=== PATIENT | female | born 1960 | race Caucasian/White ===

== ENCOUNTER 2018-06-01 09:14 | Outpatient (CLI) | payer OTHER | END 2018-06-01 17:00 | disposition home or self-care (01) | LOC: MAMO-SONO 09:14 | DX: Z12.31 Encounter for screening mammogram for malignant neoplasm of breast (principal); J45.998 Other asthma ==

== ENCOUNTER 2021-08-24 09:09 | Outpatient (CLI) | payer OTHER | END 2021-08-24 09:26 | disposition home or self-care (01) | LOC: MAMO-SONO 09:09 | PROVIDERS: ATTEND General Practice | DX: Z12.31 Encounter for screening mammogram for malignant neoplasm of breast (principal); N64.4 Mastodynia ==

== ENCOUNTER 2023-02-24 10:22 | Outpatient (CLI) | payer OTHER | END 2023-02-24 10:34 | disposition home or self-care (01) | LOC: MAMO-SONO 10:22 | DX: Z12.39 Encounter for other screening for malignant neoplasm of breast (principal); Z12.31 Encounter for screening mammogram for malignant neoplasm of breast; R10.2 Pelvic and perineal pain ==

== ENCOUNTER 2023-03-02 15:11 | Outpatient (CLI) | payer OTHER | END 2023-03-02 15:22 | disposition home or self-care (01) | LOC: RAD 15:11 | PROVIDERS: ATTEND General Practice | DX: M79.671 Pain in right foot (principal); R26.2 Difficulty in walking, not elsewhere classified ==

== ENCOUNTER 2023-04-06 13:29 | Outpatient (CLI) | payer OTHER | END 2023-04-06 13:30 | disposition home or self-care (01) | LOC: NUCLEAR 13:29 | DX: Z13.820 Encounter for screening for osteoporosis (principal) ==